=== PATIENT | female | born 1955 | race Caucasian/White ===

== ENCOUNTER → 2016-05-17 | Outpatient (CLI) | payer OTHER, MEDICAID ==
--- NOTE | 2016-05-17 15:40 | DX ---
Pelvis Single View. HISTORY: Worsening left sacroiliac joint pain. COMPARISON: CT March 2012. FINDINGS: There is normal mineralization. There is mild sclerosis at the left sacroiliac joint. Subtl e cortical irregularity is seen at the left ischial side of the sacral iliac joint suggesting subtle erosion. Mild degenerative change is seen in both hips with mild subarticular sclerosis and periartic ular spurring. There is also mild sclerosis at the symphysis pubis. Similar appearance to comparison CT. Degenerative disk and degenerative joint disease L4-L5. IMPRESSION: Subtle degenerative change left sacral iliac joint or sacroiliitis. Mild early degenerati ve change in both hips. Mild degenerative change symphysis pubis.
== END ==
LOC: FIMAGING 12:22
PROVIDERS: ATTEND Family Medicine
DX: M53.3 Sacrococcygeal disorders, not elsewhere classified (principal); R53.82 Chronic fatigue, unspecified
CPT/HCPCS: G0472

== ENCOUNTER 2016-07-14 08:30 | Emergency (ER) | payer OTHER, MEDICAID ==
[2016-07-14 09:00] VITALS: RESP 16
[2016-07-14] MEDS ORDERED: NS 2,000 ML IV ONE (09:00)
[2016-07-14] MEDS ORDERED: ONDANSETRON 4 MG/2 ML VIAL ONE (09:10)
--- NOTE | 2016-07-14 09:18 | UCPHY ---
H & P Patient Type: Established Chief Complaint Nursing Narrative: n/v/d since 5am . fell and hit right head area while sitting on the bed ~ 1 h manganese heater . Hit against oxygen tank. C/o headache and right lateral neck pain. Denies parathesias . Denies neck tenderness during palpation of cspine. History of Vertigo Time Seen by Provider: 07/14/16 08:55 HPI/ROS: This patient presents with a chief complaint of vomiting and diarrhea which began at 5:00 a.m. this morning which is approximately 4 hours ago. Last night when she went to bed she had a mild headache but no gastrointestinal symptoms. She was awakened at 5:00 a.m. with the need to have diarrhea which she has done approximately 6 times. The vomiting began shortly thereafter had 6:00 a.m. and she has vomited 4 or 5 times. She denies any blood in either. She denies any abdominal pain but she does have some mild myalgias and headache continues she denies any fever. She does feel lightheaded. At 8:00 a.m. she became dizzy and actually fainted and struck her right forehead on the floor. She denies any neurologic symptoms such as difficulty seeing, hearing talking or thinking at this time. She is unaware of any motor or sensory dysfunction. Her became ill with similar symptoms 3 days ago and he is still feeling poorly but the vomiting and diarrhea have not persisted. He did not have a fever. REVIEW OF SYSTEMS: Constitutional: Weakness, malaise and lightheadedness no fever Eyes: No visual difficulties ENT: Dry mouth but denies sore throat, congestion or ear pain Respiratory: Denies cough, denies shortness of breath Cardiac: No chest pain Gastrointestinal: No abdominal pain Genitourinary: No frequency, urgency, dysuria Musculoskeletal: Some neck pain Skin: No rash Neurological: Headache otherwise negative Source: Patient, RN notes reviewed, Old records Exam Limitations: No limitations - Personal History Current Tetanus/Diphtheria Vaccine: No Current Tetanus Diphtheria and Acellular Pertussis (TDAP): No - Medical/Surgical History Hx Asthma: No Hx Chronic Respiratory Disease: No Hx Diabetes: No Hx Cardiac Disease: No Hx Renal Disease: No Hx Cirrhosis: No Hx Alcoholism: No Hx HIV/AIDS: No Hx Splenectomy or Spleen Trauma: No Other PMH: FIBROMYALGIA,chronic fatigue. appy,csection,mitral valve prolapse. Tb age 14 - Family History Significant Family History: No pertinent family hx - Social History Smoking Status: Never smoked - Physical Exam Exam: GENERAL: Well-appearing, well-nourished and in no acute distress. HEAD: Atraumatic, normocephalic. EYES: Pupils equal round and reactive to light, extraocular movements intact, sclera anicteric, conjunctiva are normal. ENT: TMs normal, nares patent, oropharynx clear without exudates. Mildly dry mucous membranes. NECK: Normal range of motion, supple without lymphadenopathy or JVD. LUNGS: Breath sounds clear to auscultation bilaterally and equal. No wheezes rales or rhonchi. HEART: Regular rate and rhythm there is a grade 2 systolic murmur present rubs or gallops. ABDOMEN: Soft, nontender, normoactive bowel sounds. No guarding, no rebound. No masses appreciated. EXTREMITIES: Normal range of motion, no pitting or edema. No clubbing or cyanosis. NEUROLOGICAL: Cranial nerves II through XII grossly intact. Normal speech, normal gait. PSYCH: Normal mood, normal affect. SKIN: Warm, dry, normal turgor, no visible rashes or lesions. Constitutional: Initial Vital Signs Temperature (C) 36.6 C 07/14/16 08:56 Heart Rate 78 07/14/16 08:56 Respiratory Rate 16 07/14/16 08:56 Blood Pressure 113/59 L 07/14/16 08:56 O2 Sat (%) 96 07/14/16 08:56 O2 Delivery Mode Room Air Allergies/Adverse Reactions: Penicillins Allergy (Severe, Verified 07/14/16 08:55) RAPID HR AND SOB gluten Allergy (Verified 07/14/16 08:55) Home Medications: Medication Instructions Recorded Estrogen Biest 02/12/12 Naltrexone 3 mg 02/12/12 Progesterone 38 mg IM 02/12/12 Testosterone 5 mg SL 02/12/12 Thyroid 02/12/12 Florinef 07/14/16 Ondansetron Odt [Zofran Odt] 4 mg PO Q4PRN PRN #4 tab 07/14/16 Topamax 07/14/16 Medical Decision Making ED Course/Re-evaluation: Patient was hydrated with 2 L of normal saline and given 4 mg of Zofran intravenously. On discharge she was feeling much improved and was taking liquids and applesauce. Differential Diagnosis: I feel that this patient has viral gastroenteritis. There is no evidence whatsoever of any other intra-abdominal pathology. Departure - Departure Disposition: Home, Routine, Self-Care Clinical Impression: Gastroenteritis Condition: Good Instructions: Gastroenteritis (ED), Dehydration (ED) Additional Instructions: If symptoms have not resolved in 24 hours you should be re-evaluated. If you become dehydrated again and you should return. Do not take any solid foods for the next 8 hours. Keep yourself well hydrated with any type of liquid you desire. Use Imodium as directed on the label for diarrhea should it recur. Referrals: Jerson Harvey MD [Primary Care Provider] - As per Instructions Prescriptions: Ondansetron Odt [Zofran Odt] 4 mg PO Q4PRN PRN #4 tab PRN Reason: For Nausea & Vomiting - PQRS PQRS Measurement: Not applicable
[2016-07-14 11:34] VITALS: BP 120/55; PULSE 72; TEMP 99.1; O2SAT 97
[2016-07-16] MEDS ORDERED: ONDANSETRON 4 MG/2 ML VIAL IVP ONE (21:52)
== END 2016-07-14 11:28 | disposition home or self-care (01) ==
LOC: CED 08:30
DX: A08.4 Viral intestinal infection, unspecified (principal); E86.0 Dehydration; M79.7 Fibromyalgia
CPT/HCPCS: 96361; 96374; G0463; J2405; 99214-PO

== ENCOUNTER 2016-07-29 09:43 | Emergency (ER) | payer OTHER, MEDICAID ==
[2016-07-29 09:56] VITALS: TEMP 98.2
--- NOTE | 2016-07-29 10:00 | CPEKG ---
Heart Rate: 76 RR Interval: 789 P-R Interval: 164 QRSD Interval: 110 QT Interval: 392 QTC Interval: 441 P [place]: 15 QRS [place]: 5 T Wave [place]: 43 EKG Severity - ABNORMAL ECG - EKG Impression: SINUS RHYTHM EKG Impression: NONSPECIFIC INTRAVENTRICULAR CONDUCTION DELAY EKG Impression: PROBABLE ANTEROSEPTAL INFARCT, AGE INDETERM EKG Impression: Similar to previous Electronically Signed By: Easton Hardwick 29-Jul-2016 10:23:27
[2016-07-29] MEDS ORDERED: ASPIRIN 81 MG CHEWABLE TAB PO ONE (10:16)
[2016-07-29] MEDS ORDERED: NS 500 ML IV ONE (10:16)
--- NOTE | 2016-07-29 10:20 | UCPHY ---
H & P Patient Type: Established Chief Complaint Nursing Narrative: CHEST PAIN LEFT SIDED WITH RADIATION TO LEFT SHOULDER AND LEFT NECK, STATES STARTED INTERMITTENTLY ON 07/14 WHEN CAME TO URGENT CARE AFTER ILLNESS AND FALL, CP CONSTANT SINCE LAST NIGHT, INCREASED FATIGUE Time Seen by Provider: 07/29/16 10:09 HPI/ROS: CHIEF COMPLAINT: Chest pain HISTORY OF PRESENT ILLNESS: Patient is a 60-year-old female who comes to the Urgent Care complaining of left-sided chest pain that radiates to her neck and back. She states that she has had this for about 2 weeks. It began while she had a stomach flu with nausea and vomiting and diarrhea. She blacked out during this illness and had some bruising to her left arm. She thought that maybe she simply injured her chest when she fell. Her symptoms of all resolved however except for the chest pain. It is worse with deep inspiration. She has not had a fever. She states that she feels tired. She does have a history of fibromyalgia and chronic fatigue syndrome but states that this feels different. She also has a history of mitral valve prolapse and had an extensive workup [address] Yessenia Estrada. She had a negative stress test and Holter monitor. She also had an echocardiogram that showed only mild regurgitation. REVIEW OF SYSTEMS: Constitutional: denies: chills, fever, recent illness, recent injury EENTM: denies: blurred vision, double vision, nose congestion Respiratory: denies: cough, shortness of breath Cardiac: See HPI Gastrointestinal/Abdominal: denies: abdominal pain, diarrhea, nausea, vomiting, blood streaked stools Genitourinary: denies: dysuria, frequency, hematuria, pain Musculoskeletal: denies: joint pain, muscle pain Skin: denies: lesions, rash, jaundice, bruising Neurological: denies: headache, numbness, paresthesia, tingling, dizziness, weakness Hematologic/Lymphatic: denies: blood clots, easy bleeding, easy bruising Immunologic/allergic: denies: HIV/AIDS, transplant EXAM: GENERAL: Well-appearing, well-nourished and in no acute distress. HEAD: Atraumatic, normocephalic. EYES: Pupils equal round and reactive to light, extraocular movements intact, sclera anicteric, conjunctiva are normal. ENT: TMs normal, nares patent, oropharynx clear without exudates. Moist mucous membranes. NECK: Normal range of motion, supple without lymphadenopathy or JVD. LUNGS: Breath sounds clear to auscultation bilaterally and equal. No wheezes rales or rhonchi. HEART: Regular rate and rhythm without murmurs, rubs or gallops. ABDOMEN: Soft, nontender, normoactive bowel sounds. No guarding, no rebound. No masses appreciated. BACK: No CVA tenderness, no spinal tenderness, step-offs or deformities EXTREMITIES: Normal range of motion, no pitting or edema. No clubbing or cyanosis. NEUROLOGICAL: Cranial nerves II through XII grossly intact. Normal speech, normal gait. 5/5 strength, normal movement in all extremities, normal sensation PSYCH: Normal mood, normal affect. SKIN: Warm, dry, normal turgor, no visible rashes or lesions. Source: Patient Exam Limitations: No limitations - Medical/Surgical History Hx Asthma: No Hx Chronic Respiratory Disease: No Hx Diabetes: No Hx Cardiac Disease: No Hx Renal Disease: No Hx Cirrhosis: No Hx Alcoholism: No Hx HIV/AIDS: No Hx Splenectomy or Spleen Trauma: No Other PMH: FIBROMYALGIA,chronic fatigue, MIGRAINES, HYPOTHYROIDISM. appy, csection,mitral valve prolapse. Tb age 14 - Family History Significant Family History: Hypertension, Vascular disease - Social History Smoking Status: Never smoked Alcohol Use: Sober Drug Use: None Constitutional: Initial Vital Signs Temperature (C) 36.8 C 07/29/16 09:53 Heart Rate 74 07/29/16 09:53 Respiratory Rate 18 07/29/16 09:53 Blood Pressure 156/59 H 07/29/16 09:53 O2 Sat (%) 96 07/29/16 09:53 O2 Delivery Mode Room Air Allergies/Adverse Reactions: Penicillins Allergy (Severe, Verified 07/29/16 09:53) RAPID HR AND SOB gluten Allergy (Verified 07/29/16 09:53) Home Medications: Medication Instructions Recorded Estrogen Biest 02/12/12 Naltrexone 3 mg 02/12/12 Progesterone 38 mg IM 02/12/12 Testosterone 5 mg SL 02/12/12 Thyroid 02/12/12 Florinef 07/14/16 Ondansetron Odt [Zofran Odt] 4 mg PO Q4PRN PRN #4 tab 07/14/16 Topamax 07/14/16 Medical Decision Making - Diagnostics EKG Interpretation: An EKG obtained and was read and documented in trace view. Please see trace view for full reading and report. Sinus rhythm, no acute ischemic changes ED Course/Re-evaluation: 11:20 a.m. the patient is completely asymptomatic. We discussed her EKG, chest x-ray and lab results which are reassuring. She has had constant symptoms for about 3-4 days. I would expect to see an elevated troponin if this was infarction. This is reassuring. The patient feels relieved and is eager to go home. She declines further observation or testing. She will follow up with her primary Dr. Jerson Harvey as within the next 48 hours. Differential Diagnosis: Partial list of the Differential diagnosis considered include but were not limited to; pleurisy, PE, acute coronary disease, costochondritis, GERD and although unlikely based on the history and physical exam, I also considered anxiety, arrhythmia pneumothorax, pneumonia. I discussed these differential diagnoses and the plan with the patient as well as the usual and expected course. The patient understands that the diagnosis is provisional and that in medicine we are not always correct and that further workup is often warranted. Usual and customary warnings were given. All of the patient's questions were answered. The patient was instructed to return to the emergency department should the symptoms at all worsen or return, otherwise to followup with the physician as we discussed. - Data Points Laboratory Results: Laboratory Results 07/29/16 09:55 07/29/16 09:55 07/29/16 07/29/16 07/29/16 09:55 09:55 09:55 WBC 5.99 10^3/uL 10^3/uL (3.80-9.50) RBC 4.88 10^6/uL 10^6/uL (4.18-5.33) Hgb 15.0 g/dL g/dL (12.6-16.3) Hct 43.8 % % (38.0-47.0) MCV 89.8 fL fL (81.5-99.8) MCH 30.7 pg pg (27.9-34.1) MCHC 34.2 g/dL g/dL (32.4-36.7) RDW 12.7 % % (11.5-15.2) Plt Count 244 10^3/uL 10^3/uL (150-400) MPV 9.1 fL fL (8.7-11.7) Neut % (Auto) 64.2 % % (39.3-74.2) Lymph % (Auto) 23.2 % % (15.0-45.0) [place] % (Auto) 10.9 % % (4.5-13.0) Eos % (Auto) 0.7 % % (0.6-7.6) Baso % (Auto) 0.7 % % (0.3-1.7) Nucleat RBC Rel Count 0.0 % % (0.0-0.2) Absolute Neuts (auto) 3.85 10^3/uL 10^3/uL (1.70-6.50) Absolute Lymphs (auto) 1.39 10^3/uL 10^3/uL (1.00-3.00) Absolute Monos (auto) 0.65 10^3/uL 10^3/uL (0.30-0.80) Absolute Eos (auto) 0.04 10^3/uL 10^3/uL (0.03-0.40) Absolute Basos (auto) 0.04 10^3/uL 10^3/uL (0.02-0.10) Absolute Nucleated RBC 0.00 10^3/uL 10^3/uL (0-0.01) Immature Gran % 0.3 % % (0.0-1.1) Immature Gran # 0.02 10^3/uL 10^3/uL (0.00-0.10) PT 13.2 SEC SEC (12.0-15.0) INR 1.03 (0.83-1.16) APTT 29.3 SEC SEC (23.0-38.0) D-Dimer < 0.27 ug/mLFEU ug/mLFEU (0.00-0.50) Sodium 140 mEq/L mEq/L (134-144) Potassium 4.3 mEq/L mEq/L (3.5-5.2) Chloride 107 mEq/L mEq/L (97-110) Carbon Dioxide 20 mEq/l L mEq/l (22-31) Anion Gap 13 mEq/L mEq/L (8-16) BUN 22 mg/dL mg/dL (7-23) Creatinine 0.8 mg/dL mg/dL (0.6-1.0) Estimated GFR > 60 Glucose 95 mg/dL mg/dL (70-100) Calcium 9.3 mg/dL mg/dL (8.5-10.4) Total Bilirubin 0.6 mg/dL mg/dL (0.1-1.4) Conjugated Bilirubin 0.1 mg/dL mg/dL (0.0-0.5) Unconjugated Bilirubin 0.5 mg/dL mg/dL (0.0-1.1) AST 26 IU/L IU/L (14-46) ALT 45 IU/L IU/L (9-52) Alkaline Phosphatase 79 IU/L IU/L (38-126) Troponin I < 0.012 ng/mL ng/mL (0-0.034) Total Protein 7.0 g/dL g/dL (6.3-8.2) Albumin 3.7 g/dL g/dL (3.5-5.0) Lipase 239.0 IU/L IU/L (23-300) Medications Given: Discontinued Medications Aspirin (Aspirin) 324 mg PO EDNOW ONE Stop: 07/29/16 10:17 Last Admin: 07/29/16 10:25 Dose: 324 mg Sodium Chloride (Ns) 500 mls @ 0 mls/hr IV ONCE ONE PRN Reason: As Directed Stop: 07/29/16 10:17 Last Admin: 07/29/16 10:25 Dose: 500 mls Departure - Departure Disposition: Home, Routine, Self-Care Clinical Impression: Chest pain Qualifiers: Chest pain type: unspecified Qualified Code(s): R07.9 - Chest pain, unspecified Condition: Fair Instructions: Chest Pain (ED) Referrals: Jerson Harvey MD [Primary Care Provider] - 1-2 days without fail - PQRS PQRS Measurement: 134: Depression screening and followup, PRIME MD-PHQ2 (12 years and older) Over the last 2 weeks, how often have you been bothered by any of the following problems? 1. Feeling down, depressed, or hopeless? 2. Little interest or pleasure in doing things? Patient answered no to both 1 and 2 130: Documentation of medications. Reviewed all patient medications, doses, route and frequency. 226: Do you smoke? No. 47: 65 and older: Advanced care planning. Patient designates surrogate decision maker as spouse . Patient has advanced directive. 51: 18 years old and older with diagnosis of COPD, spirometry performance. Spirometry not performed; equipment not available. 52: 18 years old and older with COPD and symptoms of COPD or FEV1<60% predicted prescribed a B Agonist. Not applicable
[2016-07-29 10:25] LABS: % IMMATURE GRANULYOCYTES 0.3 % (0.0-1.1); ABSOLUTE IMMATURE GRANULOCYTES 0.02 10^3/uL (0.00-0.10); ADD DIFF? NO; ADD MORPH? NO; ADD SCAN? NO; ATYPICAL LYMPHOCYTE FLAG 10 (0-99); FRAGMENT RBC FLAG 0 (0-99); HEMATOCRIT 43.8 % (38.0-47.0); LEFT SHIFT FLG 0 (0-99); LIPEMIA HEMOLYSIS FLAG 90 (0-99); MEAN CELL HEMOGLOBIN 30.7 pg (27.9-34.1); MEAN CELL HEMOGLOBIN CONCENTR. 34.2 g/dL (32.4-36.7); MEAN CELL VOLUME 89.8 fL (81.5-99.8); MEAN PLATELET VOLUME 9.1 fL (8.7-11.7); PLATELET CLUMPS FLAG 0 (0-99); PLATELET COUNT 244 10^3/uL (150-400); RED BLOOD CELL COUNT 4.88 10^6/uL (4.18-5.33); RED CELL DISTRIBUTION WIDTH 12.7 % (11.5-15.2)
[2016-07-29 10:32] LABS: INR 1.03 (0.83-1.16); PROTIME(PATIENT) 13.2 SEC (12.0-15.0)
[2016-07-29 10:33] LABS: APTT 29.3 SEC (23.0-38.0)
[2016-07-29 10:36] LABS: ALANINE AMINOTRANSFERASE 45 IU/L (9-52); ALBUMIN 3.7 g/dL (3.5-5.0); ALKALINE PHOSPHATASE 79 IU/L (38-126); ANION GAP 13 mEq/L (8-16); ASPARTATE AMINOTRANSFERASE 26 IU/L (14-46); BILIRUBIN,TOTAL 0.6 mg/dL (0.1-1.4); BILIRUBIN-CONJUGATED 0.1 mg/dL (0.0-0.5); BILIRUBIN-UNCONJUGATED 0.5 mg/dL (0.0-1.1); CALCIUM 9.3 mg/dL (8.5-10.4); CARBON DIOXIDE 20 mEq/l (22-31); CHLORIDE 107 mEq/L (97-110); CREATININE 0.8 mg/dL (0.6-1.0); GLOMERULAR FILTRATION RATE > 60; GLUCOSE 95 mg/dL (70-100); POTASSIUM 4.3 mEq/L (3.5-5.2); SODIUM 140 mEq/L (134-144)
[2016-07-29 10:47] LABS: TROPONIN I < 0.012 ng/mL (0-0.034)
[2016-07-29 11:35] VITALS: BP 134/71; PULSE 82; RESP 20; O2SAT 95
== END 2016-07-29 11:38 | disposition home or self-care (01) ==
LOC: CED 09:43
DX: R07.9 Chest pain, unspecified (principal); M25.512 Pain in left shoulder; R55 Syncope and collapse; M54.2 Cervicalgia; R53.82 Chronic fatigue, unspecified; M79.7 Fibromyalgia; E03.9 Hypothyroidism, unspecified; I34.1 Nonrheumatic mitral (valve) prolapse
CPT/HCPCS: 71020; 93005; G0463; 80048-PO; 80076-PO; 83690-PO; 84484-PO; 85025-PO; 85378-PO; 85610-PO; 85730-PO; 93010-PO; 99215-PO

== ENCOUNTER → 2016-09-26 | Outpatient (CLI) | payer OTHER, MEDICAID | LOC: FIMAGING 14:38 | PROVIDERS: ATTEND Family Medicine | DX: Z12.31 Encounter for screening mammogram for malignant neoplasm of breast (principal) | CPT/HCPCS: G0202 ==

== ENCOUNTER → 2016-10-04 | Outpatient (CLI) | payer OTHER, MEDICAID | LOC: BHCLAF 11:30 | PROVIDERS: ATTEND Internal Medicine Cardiovascular Disease | DX: R01.1 Cardiac murmur, unspecified (principal) | CPT/HCPCS: 93306-PO ==

== ENCOUNTER → 2016-11-05 | Outpatient (CLI) | payer OTHER, MEDICAID | LOC: CIMAGING 15:49 | PROVIDERS: ATTEND Family Medicine | DX: R22.1 Localized swelling, mass and lump, neck (principal) | CPT/HCPCS: 76536-PO ==

== ENCOUNTER → 2018-03-12 | Outpatient (CLI) | payer OTHER, MEDICAID | LOC: FIMAGING 15:53 | DX: Z12.31 Encounter for screening mammogram for malignant neoplasm of breast (principal) ==

== ENCOUNTER 2018-06-17 20:09 | Emergency (ER) | payer OTHER, MEDICAID ==
[2018-06-17] MEDS ORDERED: ASPIRIN 81 MG CHEWABLE TAB PO ONE (20:19)
[2018-06-17] MEDS ORDERED: HYOSCYAMINE SULFATE 0.125 MG TAB PO ONE (20:50)
[2018-06-17] MEDS ORDERED: MAG HYDROX/AL HYDROX/SIMETH 30 ML UDCUP PO ONE (20:50)
--- NOTE | 2018-06-17 20:50 | EDPHY ---
H & P Stated Complaint: c/o 2hrs ago rt arm pain rad to chest 9/10 currently 2 mid chest Source: Patient - Personal History Current Tetanus Diphtheria and Acellular Pertussis (TDAP): Yes - Medical/Surgical History Hx Asthma: No Hx Chronic Respiratory Disease: No Hx Diabetes: No Hx Cardiac Disease: No Hx Renal Disease: No Hx Cirrhosis: No Hx Alcoholism: No Hx HIV/AIDS: No Hx Splenectomy or Spleen Trauma: No Other PMH: FIBROMYALGIA,chronic fatigue, MIGRAINES, HYPOTHYROIDISM. appy, csection,mitral valve prolapse. Tb age 14 - Family History Significant Family History: No pertinent family hx - Social History Smoking Status: Never smoked Alcohol Use: Rarely Drug Use: None Time Seen by Provider: 06/17/18 20:15 HPI/ROS: While at rest an hour prior to arrival reclining on a sofa 2 hr after eating dinner the patient developed right-sided arm pain 9/10 intensity lasting for few minutes associated with left-sided chest pain. No arm pain is since resolved. The chest pain is now 3/10 intensity left-sided nonradiating. She reports that she initially had mild lightheadedness and mild nausea. The lightheadedness is resolved. Mild nausea persists. She reports no other associated symptoms. She did have a similar episode of pain approximately 3 years ago with negative emergency department workup followed by a visit with Dr. Yessenia Estrada, sports umpire to formed a stress test that was negative and a follow-up echocardiogram 2 years ago without significant abnormalities per patient. ROS: Constitutional: No fevers or chills recently. HEENT: Mild nasal congestion recently. No sinus pain or other complaints. Pulmonary: Mild cough 3 weeks ago and has since improved/resolved Cardiovascular: No heart palpitations. No leg swelling. No lightheadedness. GI: Mild nausea. No abdominal pain. No bloating. Normal bowel movements. She did notice any obvious GERD symptoms prior to the onset of the others pains. : No complaints Integumentary: No rash diaphoresis or pallor. 10 point review of symptoms is performed and otherwise negative with exception of pertinent positives and negatives listed in HPI and ROS (Lonnie Perea) - Physical Exam Exam: General Appearance: Alert, no distress. Eyes: Pupils equal and round no pallor or injection. ENT, Mouth: Mucous membranes moist. Respiratory: There are no retractions, lungs are clear to auscultation. Cardiovascular: Regular rate and rhythm. No murmur gallop or rub appreciated. No peripheral edema. No chest wall tenderness. Gastrointestinal: Abdomen is soft and nontender, no masses, bowel sounds normal. Neurological: GCS 15. Skin: Warm and dry, no rashes. Musculoskeletal: Neck is supple nontender. Extremities are symmetrical, full range of motion. Psychiatric: Mood and affect are normal DIFFERENTIAL DIAGNOSIS: After history and physical exam differential diagnosis was considered for GERD with esophageal spasm, musculoskeletal pain, pleurisy, pneumonia, pneumothorax, myocardial ischemic disease (Lonnie Perea) Constitutional: Initial Vital Signs Temperature (C) 36.6 C 06/17/18 20:14 Heart Rate 74 06/17/18 20:14 Respiratory Rate 20 06/17/18 20:14 Blood Pressure 141/74 H 06/17/18 20:14 O2 Sat (%) 97 06/17/18 20:14 O2 Delivery Mode Room Air Allergies/Adverse Reactions: Penicillins Allergy (Severe, Verified 07/29/16 09:53) RAPID HR AND SOB gluten Allergy (Verified 07/29/16 09:53) Home Medications: Medication Instructions Recorded Estrogen Biest 02/12/12 Naltrexone 3 mg 02/12/12 Progesterone 38 mg IM 02/12/12 Testosterone 5 mg SL 02/12/12 Thyroid 02/12/12 Florinef 07/14/16 Ondansetron Odt [Zofran Odt] 4 mg PO Q4PRN PRN #4 tab 07/14/16 Topamax 07/14/16 Medical Decision Making - Diagnostics Imaging: I viewed and interpreted images myself - Diagnostics EKG Interpretation: 12 lead EKG performed shortly after arrival reveals sinus rhythm at 68. EKG was done at 8:15 p.m. Indication chest pain Intervals: Normal throughout [place]: Normal throughout ST segments: Normal throughout Overall assessment: Normal sinus rhythm without acute ischemic abnormalities by my interpretation (Lonnie Perea) Imaging Results: Imaging Impressions Chest X-Ray 06/17/18 20:19 Impression: No acute radiographic abnormality. No significant change from the prior study. Two view chest x-ray: Normal by my interpretation (Lonnie Perea) ED Course/Re-evaluation: IV, monitor, aspirin 324 chew Maalox and Levsin without change in chest discomfort 3/10 intensity Tylenol p.o. Thereafter Review of labs-normal CBC and basic metabolic panel exception of a creatinine of 1.4. Troponin is normal. D-dimer is normal. Chest x-ray is normal by my interpretation Discussion: Patient with chest pain currently arm pain prior to the chest pain without evidence of acute cardiopulmonary pathology. Considerations for her ongoing mild discomfort include flare of her fibromyalgia, musculoskeletal source, GERD. Her heart score comes out in the low category a 2 or 3. Patient declines admission. She is interested in a repeat troponin at 3:00 a.m. After onset of pain. Will plan to proceed with this course as well as a repeat EKG at that time. Anticipate likely discharge home with outpatient follow-up with Dr. Estrada for further evaluation [facility] at 11:00 p.m. regarding this patient. He will follow up with repeat troponin and EKG and final disposition. (Lonnie Perea) Differential Diagnosis: Differential diagnosis includes but is not limited to the following: ACS, myocardial infarction, pneumothorax, pleurisy, pulmonary embolus, CHF, Pneumonia, bronchospasm, Asthma, anxiety, muscle strain. (Alejo Vaughan) Other Provider: Care assumed at change of shift. D/w off going physician. Chart reviewed. Pt interviewed and examined. She has already had initial baseline troponin any 3 hr delta is going to be performed at midnight. After initial evaluation here on arrival she was subsequently given: Aspirin Tylenol Maalox CHIEF COMPLAINT: Right arm followed by central chest discomfort HISTORY OF PRESENT ILLNESS: This is a medically stable 62-year-old female with known chronic fatigue syndrome. She readily admits to having occasional days which she can even get off the couch. However in the last month she has noted no particular difficulty on the days she can get up to do such chores as vacuuming etc. Nor has there been a change in the number of days that she considers "good" Dinner was at 6:00 p.m. Consisting of meat loaf, broccoli and squash She is resting on the couch at home at around 7:30 a.m. Started having discomfort of an intense sharp pain in the right arm. Over the ensuing 10-15 minutes it seemed to go down from the shoulder into the hand. Subsequently, as it abated it started recurring in the central left chest. It had left the right arm completely. She describes the central left chest as more of an ache. It is not pleuritic until when she was asked to take deep breaths on the initial clinical exam when she noted it was somewhat pleuritic. It stayed in the left chest after being in the right arm and did not radiate subsequently. There is no jaw discomfort or back discomfort. There was some associated shortness of breath which has since left. There is no nausea or diaphoresis. The chest discomfort does persist despite the above measures of aspirin Tylenol and Maalox. P: Onset at rest, but not worse with breathing until asked on clinical exam to take very deep breaths Q: Achiness R: Initially was in the right arm then migrated to the left central chest as it dissipated and left the right arm S: Initially quite severe in the right arm and then moderate on the left chest T: Began at 7:00 p.m., continuous though improving PE risk factors: None. No family history or personal history of DVT PE. No hypercoagulable syndrome Cardiac risk factors: She was never smoker. Does not have diabetes or hypertension. Cholesterol was high though the ratio was such that she did not need treatment. Mother at approximately 82 from ovarian cancer. Father collapse and broke his femur although the supposition was that this is cardiac related. He is having a cardiac stress test prior to his planned surgery and subsequently . He was approximately 72 REVIEW OF SYSTEMS: Constitutional: No fever, no chills. Eyes: No discharge ENT: No sore throat. Cardiovascular: See above Respiratory: No cough, phlegm or wheezing Gastrointestinal: No Nausea, vomiting, abdominal pain or diarrhea Genitourinary: No hematuria or frequency. Musculoskeletal: No back pain. Skin: No rashes. Neurological: No headache. A 10 system review of systems was performed and is negative except for the noted findings in the HPI. General Appearance: Alert, no distress. Afebrile. Normal phonation. No respiratory distress. Eyes: Pupils equal and round no pallor or injection. No icterus ENT, Mouth: Mucous membranes moist slightly dry moderately dry Pharynx without erythema or exudate. TM Clear. Neck: No adenopathy. Supple. No JVD. Trachea in midline. Respiratory: There are no retractions, lungs are clear to auscultation. Chest wall: Nontender to palpation. No crepitus. I am unable to reproduce the pain Cardiovascular: Regular rate and rhythm. No murmur Abdomen: Soft and nontender, no masses, bowel sounds normal. Femoral pulses equal. Neurological: Ox3. No motor weakness. Sensation intact. Gait nl. Skin: Warm and dry, no rashes. Musculoskeletal: No joint swelling. Extremities: No edema. Homans sign negative. No cords. Psychiatric: Normal affect. Patient is oriented X 3. There is no agitation Chest x-ray reviewed by me and negative as per the radiologist Initial troponin was negative as well as a 3 hr follow-up A repeat EKG was performed. This is sinus rhythm. First-degree block. No ST segment changes normal T-waves. When compared to the EKG 2 hr prior it is unchanged. Heart score is 3. I reviewed the heart score with this patient as did Dr. Perea. This would place her in a low risk and appropriate for outpatient management which she in fact elected to do. (Alejo Vaughan) - Data Points Laboratory Results: 06/18/18 06/17/18 06/17/18 00:08 20:30 20:28 POC Sodium 142 mEq/L mEq/L (135-145) POC Potassium 3.5 mEq/L mEq/L (3.3-5.0) POC Chloride 106.0 mEq/L mEq/L (97-110) POC Total CO2 25 mEq/L mEq/L (22-31) POC BUN 23 mg/dL mg/dL (7-23) POC Creatinine 1.4 mg/dL H mg/dL (0.6-1.0) POC Glucose 90 mg/dL mg/dL (70-100) POC Calcium 9.8 mg/dL mg/dL (8.5-10.4) POC Total Bilirubin 0.9 mg/dL mg/dL (0.1-1.4) POC AST 28 IU/L IU/L (14-46) POC ALT 15 IU/L IU/L (9-52) POC Alk Phosphatase 86 IU/L IU/L (38-126) POC Troponin I 0.00 ng/mL ng/mL 0.01 ng/mL ng/mL (0.00-0.08) (0.00-0.08) POC Total Protein 7.3 g/dL g/dL (6.3-8.2) POC Albumin 3.8 g/dL g/dL (3.5-5.0) Medications Given: Discontinued Medications Acetaminophen (Tylenol) 1,000 mg PO EDNOW ONE Stop: 06/17/18 21:28 Last Admin: 06/17/18 21:34 Dose: 1,000 mg Al Hydroxide/Mg Hydroxide (Maalox Susp) 30 ml PO EDNOW ONE Stop: 06/17/18 20:51 Last Admin: 06/17/18 20:59 Dose: 30 ml Aspirin (Aspirin) 324 mg PO EDNOW ONE Stop: 06/17/18 20:20 Last Admin: 06/17/18 20:59 Dose: 324 mg Hyoscyamine Sulfate (Levsin, Hyomax-Sl) 0.125 mg PO EDNOW ONE Stop: 06/17/18 20:51 Last Admin: 06/17/18 20:59 Dose: 0.125 mg Sodium Chloride (Ns) 1,000 mls @ 0 mls/hr IV ONCE ONE; Wide Open PRN Reason: Protocol Stop: 06/17/18 20:52 Last Admin: 06/17/18 20:59 Dose: 1,000 mls Point of Care Test Results: CBC CBC Collection Date 06/17/18 CBC Collection Time 20:15 WBC 6.00 RBC 4.79 HGB 15.0 HCT 44.8 PLT 205 Neut # 3.01 Neut 50.1 LYMPH # 2.19 LYMPH 36.5 MCV 93.5 Chemistry 06/18/18 06/17/18 06/17/18 00:08 20:30 20:28 POC Sodium 142 mEq/L mEq/L (135-145) POC Potassium 3.5 mEq/L mEq/L (3.3-5.0) POC Chloride 106.0 mEq/L mEq/L (97-110) POC Total CO2 25 mEq/L mEq/L (22-31) POC BUN 23 mg/dL mg/dL (7-23) POC Creatinine 1.4 mg/dL H mg/dL (0.6-1.0) POC Glucose 90 mg/dL mg/dL (70-100) POC Calcium 9.8 mg/dL mg/dL (8.5-10.4) POC Total Bilirubin 0.9 mg/dL mg/dL (0.1-1.4) POC AST 28 IU/L IU/L (14-46) POC ALT 15 IU/L IU/L (9-52) POC Alk Phosphatase 86 IU/L IU/L (38-126) POC Troponin I 0.00 ng/mL ng/mL 0.01 ng/mL ng/mL (0.00-0.08) (0.00-0.08) POC Total Protein 7.3 g/dL g/dL (6.3-8.2) POC Albumin 3.8 g/dL g/dL (3.5-5.0) D-Dimer D-Dimer Collection Date 06/17/18 D-Dimer Collection Time 20:15 D-Dimer (ng/ml) <100 Departure - Departure Disposition: Home, Routine, Self-Care Clinical Impression: Chest pain Qualifiers: Chest pain type: unspecified Qualified Code(s): R07.9 - Chest pain, unspecified Condition: Good Instructions: Chest Pain (ED) Additional Instructions: Diagnosis: Chest pain Plan: Tylenol for discomfort if needed Call Dr. Estrada-sports umpire arrange follow-up appointment for further evaluation tomorrow as you likely need further studies. Take Aspirin 81 mg daily until you see Dr. Estrada in followup Your not allowed to exert yourself beyond simple walking, puttering around the kitchen or stairs; until released by Dr. Estrada. This includes vacuuming or laundry. Return emergency department if you developed significant worsening of symptoms despite the treatment plan. Referrals: Catherine Regalado MD [Medical Doctor] - As per Instructions NONE *PRIMARY CARE P,. [Primary Care Provider] - As per Instructions Yessenia Estrada MD [Medical Doctor] - 1 day without fail
[2018-06-17] MEDS ORDERED: NS 1,000 ML IV ONE (20:51)
[2018-06-17] MEDS ORDERED: ACETAMINOPHEN 500 MG TAB PO ONE (21:27)
--- NOTE | 2018-06-17 22:05 | CPEKG ---
Test Reason : OPEN Blood Pressure : / mmHG Vent. Rate : 068 BPM Atrial Rate : 069 BPM P-R Int : 181 ms QRS Dur : 106 ms QT Int : 420 ms P-R-T Axes : 053 012 062 degrees QTc Int : 447 ms Sinus rhythm Low voltage, extremity leads Confirmed by Lonnie Perea ([id number]) on 06/17/2018 10:04:30 PM Referred By: Lonnie Perea Confirmed By:Lonnie Perea
[2018-06-18 00:37] VITALS: BP 111/60
--- NOTE | 2018-06-18 03:25 | CPEKG ---
Test Reason : OPEN Blood Pressure : / mmHG Vent. Rate : 051 BPM Atrial Rate : 051 BPM P-R Int : 212 ms QRS Dur : 103 ms QT Int : 452 ms P-R-T Axes : 061 012 050 degrees QTc Int : 417 ms Sinus rhythm Borderline prolonged TN interval Low voltage, extremity leads Confirmed by Alejo Vaughan ([id number]) on 06/18/2018 3:25:21 AM Referred By: ROMARIO TOMLINSON Confirmed By:Alejo Vaughan
== END 2018-06-18 00:45 | disposition home or self-care (01) ==
LOC: CED 20:09
DX: R07.9 Chest pain, unspecified (principal); M79.601 Pain in right arm; E86.9 Volume depletion, unspecified
CPT/HCPCS: 71046-PO; 80053-ER; 84484-ER; 96360-ER

== ENCOUNTER → 2018-07-06 | Outpatient (CLI) | payer OTHER, MEDICAID | LOC: BHFA 11:30 | PROVIDERS: ATTEND Internal Medicine Cardiovascular Disease | DX: R07.9 Chest pain, unspecified (principal); I34.1 Nonrheumatic mitral (valve) prolapse; I08.0 Rheumatic disorders of both mitral and aortic valves ==

== ENCOUNTER → 2018-07-07 | Outpatient (CLI) | payer OTHER, MEDICAID | LOC: BHCLAF 11:30 | PROVIDERS: ATTEND Internal Medicine Cardiovascular Disease | DX: I34.0 Nonrheumatic mitral (valve) insufficiency (principal); I35.1 Nonrheumatic aortic (valve) insufficiency | CPT/HCPCS: 93306-PO ==

== ENCOUNTER → 2018-08-11 | Outpatient (CLI) | payer OTHER, MEDICAID ==
[~2018-08-11] MED LIST: GADOBUTROL 10 ML VIAL IVP ONE
== END ==
LOC: FIMAGING 10:28
PROVIDERS: ATTEND Psychiatry & Neurology Neurology
DX: M50.321 Other cervical disc degeneration at C4-C5 level (principal); M48.02 Spinal stenosis, cervical region; M51.84 Other intervertebral disc disorders, thoracic region
CPT/HCPCS: 72156; 72157; A9585